=== PATIENT | female | born 1955 | race American Indian/Alaskan Native ===

== ENCOUNTER 2016-12-11 12:40 | Outpatient (CLI) | payer OTHER ==
--- NOTE | 2016-12-11 13:06 | XRay Report ---
Chest 2 views: History: Reactive PPD. Findings: Normal size heart. Trachea is midline. Ill-defined density right middle lobe. Normal CP angles. Impression: Pneumonia and right middle lobe.
== END 2016-12-11 12:41 | disposition home or self-care (01) ==
LOC: XRAY 12:40
PROVIDERS: ATTEND Internal Medicine
DX: J18.9 Pneumonia, unspecified organism (principal); R76.11 Nonspecific reaction to tuberculin skin test without active tuberculosis
CPT/HCPCS: 71020

== ENCOUNTER 2017-05-18 09:48 | Outpatient (CLI) | payer OTHER ==
--- NOTE | 2017-05-18 12:24 | Magnetic Resonance Report ---
MRI OF THE BRAIN WITHOUT CONTRAST: HISTORY: Bilateral sensorineural hearing loss PROCEDURE: Multiplanar, multisequence MR imaging of the brain without IV contrast was performed. FINDINGS: The brain parenchyma signal intensity and its cortes white interface are within normal limits on all sequences. No evidence for acute ischemia, hemorrhage or mass. No chronic infarct or extra-axial fluid collection. The midline structures are central. The basal cisterns are patent. Normal ventricular size. The orbital cavities and sella turcica demonstrate no abnormality. The visualized paranasal sinuses and mastoid air cells are well aerated. Thin collimation images through the internal artery canals demonstrate normal cranial 7/8 nerve complexes bilaterally. No cerebellopontine angle mass or acoustic neuroma is identified. IMPRESSION: Unremarkable non-enhanced MRI of the brain.
== END 2017-05-18 09:49 | disposition home or self-care (01) ==
LOC: MRI 09:48
PROVIDERS: ATTEND Otolaryngology
DX: H90.3 Sensorineural hearing loss, bilateral (principal)
CPT/HCPCS: 70551

== ENCOUNTER 2017-06-22 09:02 | Outpatient (CLI) | payer OTHER ==
--- NOTE | 2017-06-22 10:11 | XRay Report ---
BILATERAL KNEES, 3 VIEWS History: Bilateral knee pain Findings: There is normal bone mineralization. Mild joint space narrowing in the medial compartment of the right knee. Moderate medial compartment narrowing in the left knee. No evidence for fracture, bone lesion, osteochondral defect or large joint effusion. Impression: Mild osteoarthritic changes.
== END 2017-06-22 09:03 | disposition home or self-care (01) ==
LOC: XRAY 09:02
PROVIDERS: ATTEND Internal Medicine
DX: M17.0 Bilateral primary osteoarthritis of knee (principal)

== ENCOUNTER 2019-01-20 07:35 | Emergency (ER) | payer SELFPAY ==
[2019-01-20 08:07] LABS: Basophils # (Auto) 0.1 K/mm3 (0.0-0.1); Basophils % (Auto) 1.8 % (0.0-1.8); Eosinophils # (Auto) 0.4 K/mm3 (0.0-0.4); Eosinophils % (Auto) 7.6 % (0.0-4.3); Hemoglobin 13.4 gm/dl (10.1-14.3); Lymphocytes % (Auto) 41.4 % (13.4-35.0); Mean Corpuscular HGB Conc 34 % (30-34); Mean Corpuscular Volume 84 fl (79-97); Monocytes # (Auto) 0.4 K/mm3 (0.0-0.8); Monocytes % (Auto) 8.3 % (0.0-7.3); Platelet Count 256 K/mm3 (140-440); Red Blood Count 4.66 M/mm3 (3.65-5.03); Red Cell Distribution Width 14.7 % (13.2-15.2)
--- NOTE | 2019-01-20 08:17 | XRay Report ---
CHEST 1 VIEW INDICATION: Chest Pain. COMPARISON: None FINDINGS: Support devices: None. Heart: Within normal limits. Lungs/Pleura: No acute air space or interstitial disease. Minor segmental atelectasis in the right mi ddle lobe is noted. Additional findings: None. IMPRESSION: No acute findings. Signer Name: Alex Farr Jr, MD Signed: 01/20/2019 8:13 AM Workstation Name: [id number]
[2019-01-20 08:28] LABS: BUN/Creatinine Ratio 9; Blood Urea Nitrogen 7 mg/dL (7-17); Calcium 9.4 mg/dL (8.4-10.2); Hemolysis Index 11
--- NOTE | 2019-01-20 09:28 | Emergency Department Report ---
ED Chest Pain HPI - General Chief Complaint: Chest Pain Stated Complaint: CHEST PAIN Time Seen by Provider: 01/20/19 09:09 Source: patient Mode of arrival: Ambulatory Limitations: No Limitations - History of Present Illness Initial Comments: 63-year-old female states that she has had sharp left-sided chest pain with somewhat radiates to the back for 4 days intermittently. She states that the chest pain is of very brief duration and not associated with shortness of breath nor cough. She went to [place] last month. She does not complain of any leg p ain or swelling. She reports no family history of coronary artery disease or venous thromboembolic. She does not report nausea vomiting fever or chills. She does not report unusual sweating. Does not complain of generalized weakness. MD Complaint: chest pain -: days(s) Onset: during rest Pain Location: left chest Pain Radiation: back Severity: moderate Quality: sharp Consistency: intermittent (in brief) Improves With: nothing Worsens With: nothing re: denies: nausea, vomting, diaphoresis Other Symptoms: denies: cough, fever, syncope Treatments Prior to Arrival: none Aspirin use within the Past 7 Days: (0) No - Related Data Allergies Allergy/AdvReac Type Severity Reaction Status Date / Time peanut AdvReac ITCHING, Unverified 12/11/16 12:41 RASH, HIVES Heart Score - HEART Score History: Slightly suspicious EKG: Non-specific Age: 45-65 Risk factors: 1-2 risk factors Troponin: < normal limit HEART Score: 3 - Critical Actions Critical Actions: 0-3 pts:0.9-1.7%risk of adverse cardiac event.Candidate for discharge ED Review of Systems ROS: Stated complaint: CHEST PAIN Other details as noted in HPI ED Past Medical Hx - Past Medical History Previous Medical History?: Yes Hx Asthma: Yes - Surgical History Past Surgical History?: Yes Additional Surgical History: C section - Social History Smoking Status: Never Smoker Substance Use Type: None ED Physical Exam - General Limitations: No Limitations ED Course Vital Signs 01/20/19 01/20/19 07:43 12:29 Temperature 98.3 F Pulse Rate 73 64 Respiratory 16 16 Rate Blood Pressure 129/88 Blood Pressure 131/62 [Left] O2 Sat by Pulse 98 98 Oximetry - Reevaluation(s) Reevaluation #1: Patient remains asymptomatic. She does not want to be admitted for further evaluation. She understands the risks and benefits. She is advised to return at any time she has recurrent pain for additional cardiac workup. 01/20/19 15:28 ED Medical Decision Making - Lab Data Result diagrams: 01/20/19 07:49 01/20/19 07:49 Laboratory Results - last 24 hr 01/20/19 01/20/19 01/20/19 07:49 07:49 09:19 WBC 4.9 RBC 4.66 Hgb 13.4 Hct 39.0 MCV 84 MCH 29 MCHC 34 RDW 14.7 Plt Count 256 Lymph % (Auto) 41.4 H Dodge % (Auto) 8.3 H Eos % (Auto) 7.6 H Baso % (Auto) 1.8 Lymph # 2.0 Dodge # 0.4 Eos # 0.4 Baso # 0.1 Seg Neutrophils % 40.9 Seg Neutrophils # 2.0 PT 12.6 INR 0.97 APTT 28.3 D-Dimer 303.93 H Sodium 138 Potassium 4.1 Chloride 101.2 Carbon Dioxide 28 Anion Gap 13 BUN 7 Creatinine 0.8 Estimated GFR > 60 BUN/Creatinine Ratio 9 Glucose 87 Calcium 9.4 Total Bilirubin Direct Bilirubin Indirect Bilirubin AST ALT Alkaline Phosphatase Troponin T < 0.010 NT-Pro-B Natriuret Pep Total Protein Albumin Albumin/Globulin Ratio 01/20/19 01/20/19 09:19 10:23 WBC RBC Hgb Hct MCV MCH MCHC RDW Plt Count Lymph % (Auto) Dodge % (Auto) Eos % (Auto) Baso % (Auto) Lymph # Dodge # Eos # Baso # Seg Neutrophils % Seg Neutrophils # PT INR APTT D-Dimer Sodium Potassium Chloride Carbon Dioxide Anion Gap BUN Creatinine Estimated GFR BUN/Creatinine Ratio Glucose Calcium Total Bilirubin 0.50 Direct Bilirubin < 0.2 Indirect Bilirubin 0.3 AST 15 ALT 10 Alkaline Phosphatase 65 Troponin T < 0.010 NT-Pro-B Natriuret Pep 17.01 Total Protein 7.2 Albumin 4.1 Albumin/Globulin Ratio 1.3 - EKG Data EKG shows normal: sinus rhythm Rate: normal - EKG Data Interpretation: nonspecific ST-T wave bia - Radiology Data Radiology results: report reviewed (processes seen by radiologist) Critical care attestation.: If time is entered above; I have spent that time in minutes in the direct care of this critically ill patient, excluding procedure time. ED Disposition Clinical Impression: Atypical chest pain Disposition: DC-01 TO HOME OR SELFCARE Is pt being admited?: No Does the pt Need Aspirin: No Condition: Stable Instructions: Chest Pain (ED) Additional Instructions: Return if any recurrent chest pain for further care and evaluation. Referrals: PRIMARY CARE, [Primary Care Provider] - 3-5 Days [facility] [Provider Group] - 2-3 Days Time of Disposition: 15:30
[2019-01-20 09:47] LABS: INR 0.97 (0.87-1.13)
[2019-01-20 09:48] LABS: Partial Thromboplastin Time 28.3 Sec. (24.2-36.6)
[2019-01-20 09:56] LABS: Alanine Aminotransferase 10 units/L (7-56); Albumin 4.1 g/dL (3.9-5)
[2019-01-20 10:02] LABS: Bilirubin,Direct < 0.2 mg/dL (0-0.2)
[2019-01-20 12:29] VITALS: BP 131/62
--- NOTE | 2019-01-20 15:04 | Cat Scan Report ---
CTA CHEST WITH CONTRAST INDICATION : chest pain radiating to the back. TECHNIQUE: Axial imaging performed through the chest, with contrast bolus timing set to maximize opa cification of the aorta. Sagittal and coronal reformatted images. 3-plane MIP reformatted images were obtained. All CT scans at this location are performed using CT dose reduction for ALARA by means of automated exposure control. 100 mL of intravenous contrast administered. COMPARISON: FINDINGS: Bolus: Contrast bolus timing is adequate. The aorta is normal caliber throughout. No evidence for an eurysm or dissection. The central pulmonary arteries are clear. Mediastinum: Heart and great vessels appear normal. No pathologic mediastinal adenopathy. Lungs: Minor segmental atelectasis or scarring in the medial right middle lobe is noted. Otherwise, the lungs are clear. No pleural effusion or pneumothorax. Bones: Intact. No fracture or suspicious bony lesion IMPRESSION: Normal aorta. Segmental atelectasis versus scarring in the right middle lobe. No acute cardiopulmonary process. Signer Name: Alex Farr Jr, MD Signed: 01/20/2019 3:00 PM Workstation Name: [id number]
--- NOTE | 2019-01-20 15:23 | Cat Scan Report ---
CTA ABDOMEN AND PELVIS HISTORY: Chest pain radiating to the back COMPARISON: None. TECHNIQUE: Noncontrast CT abdomen obtained. Routine postcontrast CT angiography of the abdomen and p serafin performed. Multiplanar/MIP/3D reformats were post-processed. All CT scans at this location are performed using CT dose reduction for ALARA by means of automated exposure control.. CONTRAST: 100 ml of Omnipaque 350 FINDINGS: CTA ABDOMEN: Abdominal Aorta: No significant abnormality. Celiac Artery: No significant abnormality. Superior Mesenteric Artery: No significant abnormality. Renal Arteries: Right: No significant abnormality. Left: No significant abnormality. Inferior Mesenteric Artery: No significant abnormality. CTA PELVIS: RIGHT: Common Iliac Artery: No significant abnormality. Internal Iliac Artery: No significant abnormality. External Iliac Artery: No significant abnormality. LEFT: Common Iliac Artery: No significant abnormality. Internal Iliac Artery: No significant abnormality. External Iliac Artery: No significant abnormality. NONTARGET STRUCTURES: ABDOMEN: GI:No significant abnormality. :No significant abnormality. Lymphatics:No significant abnormality. PELVIS: :No significant abnormality. Osseous Structures: Degenerative disc disease at L5-S1. Additional Findings: None IMPRESSION: 1. No significant abnormality. Signer Name: Alex Farr Jr, MD Signed: 01/20/2019 3:19 PM Workstation Name: [id number]
== END 2019-01-20 15:48 | disposition home or self-care (01) ==
LOC: ED 07:35
DX: R07.89 Other chest pain (principal); Z91.010 Allergy to peanuts
CPT/HCPCS: 36415; 71045; 71275; 74174; 80048; 80076; 83880; 84484; 85025; 85379; 85610; 85730; 93005; 93010; 99285; Q9967